=== PATIENT | female | born 1995 | race Caucasian/White ===

== ENCOUNTER 2024-01-03 08:59 | Emergency (ER) | payer MEDICAID | END 2024-01-03 10:04 | disposition home or self-care (01) | LOC: BURERS 08:59 | DX: O99.512 Diseases of the respiratory system complicating pregnancy, second trimester (principal); B34.9 Viral infection, unspecified; Z3A.26 26 weeks gestation of pregnancy | CPT/HCPCS: 87081; 87430; 99283 ==